=== PATIENT | male | born 1980 | race African-American/Black ===

== ENCOUNTER 2016-10-15 14:04 | Emergency (ER) | payer OTHER ==
[~2016-10-15] VITALS: Ht 188 cm; Wt 73.3 kg
[~2016-10-15 14:04] MED LIST: GEODON PO; LAMICTAL200 MG PO; VIVITROL380 MG/3.4 IM
[2016-10-15] MEDS ORDERED: GEODON40 MG PO (15:08)
[2016-10-15 15:26] LABS: HEMATOCRIT 42.5 % (38.0-50.0); MCH 29.2 PG (29.0-34.0); MCHC 33.6 G/DL (30.0-36.0); MCV 86.9 FL (86-99); MEAN PLAT.VOLUME 9.5 uM^3 (9.0-12.4); PLATELET COUNT 254 K/uL (156-360); RBC DIS.WIDTH-CV 13.4 % (11.8-14.6); RBC DIS.WIDTH-SD 41.9 % (39-53); RED BLOOD COUNT 4.89 M/uL (4.00-5.50); WHITE BLOOD COUNT 8.6 K/uL (4.1-10.2)
[2016-10-15 15:34] LABS: CHLORIDE 106 mEq/L (99-109); POTASSIUM 3.7 mEq/L (3.7-5.4); SODIUM 139 mEq/L (136-147)
[2016-10-15 15:36] LABS: GLUCOSE 85 mg/dL (70-99)
[2016-10-15 15:38] LABS: ANION GAP 8 MEQ/L (2-14); TOTAL BILIRUBIN 0.8 mg/dL (0.0-1.0)
[2016-10-15 15:40] LABS: ALKALINE PHOSPHATASE 59 IU/L (3-129); GFR ESTIMATE (CALCULATED) > 59 mL/min/
[2016-10-15 15:41] LABS: UREA NITROGEN (BUN) 11 mg/dL (9-23)
[2016-10-15 15:43] LABS: LIPASE 16 U/L (1.0-51.0)
[2016-10-15 16:10] LABS: BILIRUBIN NEGATIVE; BLOOD NEGATIVE; COLOR YELLOW ((YELLOW)); GLUCOSE (STRIP) NEGATIVE; KETONES NEGATIVE; LEUKOCYTES NEGATIVE; NITRITE NEGATIVE; PH, URINE 6.5 (5-8); PROTEIN (STRIP) NEGATIVE; SPECIFIC GRAVITY 1.021 (1.000-1.030)
[2016-10-15 16:11] LABS: ADD MIUA? NO; UCUL ADDED? NO
[2016-10-15] MEDS ORDERED: ZOFRAN ODT4 MG PO (19:10)
[2016-10-15 19:30] VITALS: BP 138/75
== END 2016-10-15 19:42 | disposition home or self-care (01) ==
LOC: RME 14:04 → EME 14:04 → RME 19:42
DX: R11.2 Nausea with vomiting, unspecified (principal); R19.7 Diarrhea, unspecified; R10.9 Unspecified abdominal pain; R74.8 Abnormal levels of other serum enzymes; F17.200 Nicotine dependence, unspecified, uncomplicated; Z88.0 Allergy status to penicillin; Z88.8 Allergy status to other drugs, medicaments and biological substances
CPT/HCPCS: 74020; 74177; 80053; 81003; 83690; 85027; 99281; 99285; J7030

== ENCOUNTER 2016-11-13 00:21 | Inpatient (IN) | payer OTHER ==
[~2016-11-13] VITALS: Ht 190.5 cm; Wt 72.5 kg
[2016-11-13] VITALS (7 sets, daily range): BP systolic 127–142; BP diastolic 60–87
[~2016-11-13 00:21] MED LIST changes: +GEODON40 MG PO; +ZOFRAN ODT4 MG PO
[2016-11-13 02:05] LABS: EOSINOPHIL (%) 0.3 % (0-5); HEMATOCRIT 41.6 % (38.0-50.0); IMMATURE GRANULOCYTE (%) 0.4 % (0.0-0.7); IMMATURE GRANULOCYTE COUNT 0.5 K/uL; MCH 29.4 PG (29.0-34.0); MCHC 33.9 G/DL (30.0-36.0); MCV 86.7 FL (86-99); MEAN PLAT.VOLUME 10.3 uM^3 (9.0-12.4); MONOCYTE (%) 4.9 % (3-12); MONOCYTE COUNT 0.7 K/uL (0-0.8); NEUTROPHIL (%) 86.7 % (45-76); NEUTROPHIL COUNT 11.9 K/uL (1.8-6.4); PLATELET COUNT 203 K/uL (156-360); RBC DIS.WIDTH-CV 13.2 % (11.8-14.6); RBC DIS.WIDTH-SD 41.3 % (39-53); WHITE BLOOD COUNT 13.7 K/uL (4.1-10.2)
[2016-11-13 02:11] LABS: CHLORIDE 107 mEq/L (99-109); POTASSIUM 3.4 mEq/L (3.7-5.4); SODIUM 142 mEq/L (136-147)
[2016-11-13 02:12] LABS: GLUCOSE 123 mg/dL (70-99)
[2016-11-13 02:14] LABS: ANION GAP 11 MEQ/L (2-14)
[2016-11-13 02:16] LABS: GFR ESTIMATE (CALCULATED) > 59 mL/min/
[2016-11-13 02:17] LABS: UREA NITROGEN (BUN) 11 mg/dL (9-23)
[2016-11-13 02:22] LABS: INFLUENZA A VIRAL ANTIGEN NEGATIVE; INFLUENZA B VIRAL ANTIGEN NEGATIVE
[2016-11-13 09:11] LABS: EOSINOPHIL (%) 0.1 % (0-5); HEMATOCRIT 39.5 % (38.0-50.0); IMMATURE GRANULOCYTE (%) 0.4 % (0.0-0.7); IMMATURE GRANULOCYTE COUNT 0.1 K/uL; MCH 30.1 PG (29.0-34.0); MCHC 33.9 G/DL (30.0-36.0); MCV 88.8 FL (86-99); MEAN PLAT.VOLUME 10.6 uM^3 (9.0-12.4); MONOCYTE (%) 4.3 % (3-12); MONOCYTE COUNT 1.1 K/uL (0-0.8); NEUTROPHIL COUNT 21.2 K/uL (1.8-6.4); PLATELET COUNT 194 K/uL (156-360); RBC DIS.WIDTH-SD 41.9 % (39-53); RED BLOOD COUNT 4.45 M/uL (4.00-5.50); WHITE BLOOD COUNT 24.3 K/uL (4.1-10.2)
[2016-11-13 09:31] LABS: ALKALINE PHOSPHATASE 42 IU/L (3-129); ANION GAP 6 MEQ/L (2-14); CHLORIDE 108 MEQ/L (99-109); DIRECT BILIRUBIN 0.3 mg/dL (0.0-0.3); GFR ESTIMATE (CALCULATED) > 59 mL/min/; GLUCOSE 170 mg/dL (70-99); SAMPLE HEMOLYSIS CHECK 0; SAMPLE ICTERIC CHECK 0; SAMPLE LIPEMIA CHECK 0; SODIUM 140 MEQ/L (136-147); UREA NITROGEN (BUN) 12 mg/dL (9-23)
[2016-11-13] MEDS ORDERED: VIVITROL380 MG/3.4 IM (14:07)
[2016-11-13] MEDS ORDERED: ACAMPROSATE CA333 MG PO (14:07)
[2016-11-13 18:43] LABS: AMPHETAMINES QUANT VALUE 0 NG/ML; BARBITUATES QUANT VALUE 0 NG/ML; BENZODIAZEPINES QUANT VALUE 0 NG/ML; BENZODIAZEPINES, URINE SCREEN Negative (200 ng/mL); MARIJUANA QUANT VALUE 0 NG/ML; OPIATES QUANTITATIVE VALUE 0 NG/ML; PHENCYCLIDINE QUANT VALUE 0 NG/ML
[2016-11-14 05:26] LABS: HEMATOCRIT 36.5 % (38.0-50.0); MCH 29.8 PG (29.0-34.0); MCHC 33.7 G/DL (30.0-36.0); MCV 88.4 FL (86-99); MEAN PLAT.VOLUME 10.5 uM^3 (9.0-12.4); PLATELET COUNT 184 K/uL (156-360); RBC DIS.WIDTH-CV 13.2 % (11.8-14.6); RBC DIS.WIDTH-SD 42.6 % (39-53); RED BLOOD COUNT 4.13 M/uL (4.00-5.50); WHITE BLOOD COUNT 13.4 K/uL (4.1-10.2)
[2016-11-14 05:55] LABS: ANION GAP 9 MEQ/L (2-14); CHLORIDE 110 MEQ/L (99-109); GFR ESTIMATE (CALCULATED) > 59 mL/min/; POTASSIUM 3.5 MEQ/L (3.7-5.4); SAMPLE HEMOLYSIS CHECK 0; SAMPLE ICTERIC CHECK 0; SAMPLE LIPEMIA CHECK 0; SODIUM 145 MEQ/L (136-147); UREA NITROGEN (BUN) 8 mg/dL (9-23)
[2016-11-14 05:59] LABS: GLUCOSE 88 mg/dL (70-99)
[2016-11-14 07:35] LABS: Estimated Average Glucose 111 mg/dL (70-123); HEMOGLOBIN A1c (GLYCOHEMOGLOB) 5.5 % HGB (Below 5.7)
[2016-11-14 07:39] VITALS: BP 136/83
[2016-11-14 08:09] LABS: INTERNAL CONTROL VALID? YES
[2016-11-14 11:10] LABS: HBSG INDEX 0.17
[2016-11-14 11:12] LABS: ANTI-HEPATITIS A VIRUS (IGM) Nonreactive; HAV INDEX 0.19
[2016-11-14 11:13] LABS: ANTI-HEPATITIS B CORE (IGM) Nonreactive; HBC IgM INDEX 0.11
[2016-11-14 11:14] LABS: HIV INDEX 0.07; HIV-1/2 AB/AG COMBO Nonreactive
[2016-11-14 12:26] LABS: HPCA INDEX 13.13
[2016-11-14 16:03] VITALS: BP 133/79
[2016-11-14 23:29] VITALS: BP 144/83
[2016-11-15 08:15] VITALS: BP 138/75
[2016-11-15] MEDS ORDERED: NICOTINE PATCH1 EAC2 TD (10:34)
[2016-11-15] MEDS ORDERED: LEVAQUIN500 MG PO (10:34)
[2016-11-16 11:40] LABS: HCV RNA (LOG IU/mL) 6.89 (<1.18)
== END 2016-11-15 12:20 | disposition home or self-care (01) | DRG 194 ==
LOC: EME → EDBD 00:21 → EME 00:21 → EDOF 03:45 → 3EAST 03:45
PROVIDERS: Emergency Medicine; Internal Medicine; Internal Medicine Gastroenterology; Physician Assistant
DX: J18.9 Pneumonia, unspecified organism (principal); F33.9 Major depressive disorder, recurrent, unspecified; E87.6 Hypokalemia; R09.02 Hypoxemia; F20.9 Schizophrenia, unspecified; F17.210 Nicotine dependence, cigarettes, uncomplicated; F10.10 Alcohol abuse, uncomplicated; Z88.0 Allergy status to penicillin; R73.9 Hyperglycemia, unspecified; F41.9 Anxiety disorder, unspecified; F14.90 Cocaine use, unspecified, uncomplicated; F11.90 Opioid use, unspecified, uncomplicated; R00.0 Tachycardia, unspecified; R06.00 Dyspnea, unspecified
CPT/HCPCS: 71010; 71020; 80048; 80048 91; 80074; 80076; 83036; 83605; 85025; 85025 91; 85027; 86703; 87040; 87070; 87205; 87449; 87502; 87522 90; 87900 90; 87901 90; 94640; 94640 76; 99281; 99285; J0696; J1644; J1956; J3411; J7030; J7050